=== PATIENT | female | born 1985 | race Hispanic/Latino ===

== ENCOUNTER 2017-11-20 15:15 | Inpatient (IN) | payer SELFPAY ==
[2017-11-20 16:43] LABS: #Eosinphils 0.1 thou/uL (0.0-0.7); #Lymphocytes 2.1 thou/uL (1.20-3.40); #Monocytes 0.8 thou/uL (0.11-0.59); #Neutrophils 4.9 thou/uL (1.40-6.50); %Basophils 0.6 % (0.0-1.0); %Eosinophils 1.7 % (0.0-10.0); %Lymphocytes 25.9 % (21.0-51.0); %Monocytes 10.5 % (0.0-10.0); %Neutrophils 61.3 % (42.0-75.0); Hemoglobin 19.2 g/dL (12.0-16.0); Mean Corpuscular HGB CONC 34.2 g/dL (32.0-36.0); Mean Corpuscular Hemoglobin 31.1 pg (27.0-31.0); Mean Corpuscular Volume 90.9 fl (81.0-99.0); Mean Platelet Volume 7.4 fL (7.4-10.4); Platelet Count 315 thou/uL (130-400); Red Blood Cell (RBC) Count 6.16 mill/uL (4.20-5.40)
[2017-11-20 17:04] LABS: ALT (SGPT) 8 U/L (8-55); AST (SGOT) 14 U/L (5-34); Albumin 3.9 g/dL (3.5-5.0); Alkaline Phosphatase 43 U/L (40-150); Anion Gap 12 mmol/L (10-20); BUN (Urea Nitrogen) 11 mg/dL (7.0-18.7); Bilirubin, Total 0.4 mg/dL (0.2-1.2); Calc. Creatinine Clearance 0 mL/min (70-130); Calcium 8.5 mg/dL (7.8-10.44); Carbon Dioxide 19 mmol/L (22-29); Chloride 107 mmol/L (98-107); Estimated GFR-MDRD 81; Globulin 2.8 g/dL (2.4-3.5); Glucose 156 mg/dL (70-105); Potassium 3.8 mmol/L (3.5-5.1); Protein, Total 6.7 g/dL (6.0-8.3); Sodium 134 mmol/L (136-145)
[2017-11-20 18:06] LABS: Bilirubin Negative (Negative); Blood, Urine Negative (Negative); Clarity CLOUDY (Clear); Glucose, Urine (Dipstick) Negative (Negative); Leukocyte Negative (Negative); Nitrite Negative (Negative); Protein, Urine (Dipstick) Negative (Neg-Trace); Specific Gravity, Urine 1.008 (1.002-1.036); Urobilinogen 0.2 mg/dL (0.2-1.0); pH, Urine 5.5 (5.0-9.0)
[2017-11-20] MEDS ORDERED: Promethazine HCl 25 MG/ML VIAL IM/IV PRN (18:08)
[2017-11-20] MEDS ORDERED: clonazePAM 0.5 MG TAB PO PRN (18:08)
[2017-11-20 18:10] LABS: Pregnancy Test - Urine (BHCG) Negative (Negative); Pregu Control Background? CLEAR/WHITE (CLR/WHITE); Pregu Control Bar Appear? YES (CONTROL BAR); Specific Gravity 1.008 (1.002-1.036)
[2017-11-20 18:20] LABS: Amphetamine Not Detected (NotDetected); Barbiturates Screen Not Detected (NotDetected); Benzodiazepine Screen Not Detected (NotDetected); Cocaine Metabolite Screen Not Detected (NotDetected); Medtox Control Line Valid? VALID (VALID); Medtox Reader # READER 1; Methadone Not Detected (NotDetected); Methamphetamine Not Detected (NotDetected); Opiate Screen Not Detected (NotDetected); Oxycodone Screen Not Detected (NotDetected); Phencyclidine (PCP) Not Detected (NotDetected); THC/Cannabinoid Screen Not Detected (NotDetected); Tricyclic Screen Not Detected (NotDetected)
[2017-11-20 20:24] VITALS: BMI 21.5
[2017-11-20] MEDS: Dextrose 5 % And 0.9 % NaCl 1,000 ML IV SCH (20:41)
[2017-11-20] MEDS ORDERED: clonazePAM 1 MG TAB PO SCH (21:00)
[2017-11-20 21:02] LABS: Lactic Acid 1.5 mmol/L (0.5-2.2)
[2017-11-20] MEDS: Famotidine 40 MG/4 ML VIAL SLOW IVP SCH (22:00)
--- NOTE | 2017-11-21 02:58 | HP ---
CHIEF COMPLAINT: Nausea, vomiting, and diarrhea. HISTORY OF PRESENT ILLNESS: The patient is a very pleasant 32-year-old female with no significant pa medical history who presents to the hospital with nausea, vomiting which started Thursday and ende d on Thursday. The patient also stated that she started having diarrhea starting Thursday and continues to have diarrhea currently. The patient stated that she was in good health when suddenly she started having nausea, vomiting and could not hold down any oral fluids. The patient stated that her nausea and vomiting resolved; however, her diarrhea started. The patient denies any eating outside or any travels recently. The patient states that her grandfather recently was diagnosed with C. diff and mcgraw d similar symptoms. The patient states that for the past week she has been having greater than 10 omkar wel movements daily. The patient states that they are foul smelling and are green in color. The pat ient states that she did take Imodium yesterday, but it did not help. The patient continued to have worsening diarrhea and just did not feel well, which made her come into the ER for further evaluation . The patient denies any fevers or chills, but she did complain of some lower abdominal pain describ ed it as a soreness. The patient also states that her son recently was having nausea, vomiting, and started to have diarrhea. PAST MEDICAL HISTORY: She has a history of asthma, and anxiety. SOCIAL HISTORY: She denies any alcohol or drug use or smoking history. ALLERGIES: She is allergic to CODEINE. PAST SURGICAL HISTORY: She had appendectomy. FAMILY HISTORY: She denies any history of heart disease, cancer, or diabetes. MEDICATIONS: She takes Klonopin 0.5 mg as needed and ProAir as needed. REVIEW OF SYSTEMS: The following complete review of systems was negative, unless otherwise mentioned in the HPI or below: Constitutional: Weight loss or gain, ability to conduct usual activities. Sk in: Rash, itching. Eyes: Double vision, pain. ENT/Mouth: Nose bleeding, neck stiffness, pain, te nderness. Cardiovascular: Palpitations, dyspnea on exertion, orthopnea. Respiratory: Shortness of breath, wheezing, cough, hemoptysis, fever or night sweats. Gastrointestinal: Poor appetite, abdom inal pain, heartburn, nausea, vomiting, constipation, or diarrhea. Genitourinary: Urgency, frequenc y, dysuria, nocturia. Musculoskeletal: Pain, swelling. Neurologic/Psychiatric: Anxiety, depressio n. Allergy/Immunologic: Skin rash, bleeding tendency. PHYSICAL EXAMINATION: VITAL SIGNS: She is afebrile at 97.1; pulse initially was 143, now is 103, 16 respirations, 97% on r oom air, and 117/66. GENERAL: She appears awake, alert, and oriented; however, appears severely dehydrated. CARDIOVASCULAR: S1, S2 present. She appears to be mildly tachycardic. ABDOMEN: Bowel sounds are present x2. Soft; however, mild tenderness to lower abdomen area. No spl enomegaly or hepatomegaly noted. LUNGS: Clear to auscultation, rhonchi or wheezes noted. EXTREMITIES: No edema. LABORATORY DATA: Labs are as the following: WBC is of 8.0, hemoglobin of 19.2, hematocrit of 56.0, platelets of 315. Chemistry: Her sodium is 134, potassium of 3.8, bicarbonate of 19, BUN of 11, cre atinine 0.82. AST, ALT, and bilirubin are normal. Her urine appears pretty clear, also te st is negative. Toxicology undetected. ASSESSMENT AND PLAN: The patient is a very pleasant 32-year-old female who presents to the hospital with abdominal pain, nausea and vomiting. 1. Nausea, vomiting, and diarrhea. The patient has no significant leukocytosis could possibly be a viral etiology at this point. The patient states that her diarrhea has stopped. We will start IV hy dration in patient. We will collect stool for Clostridium difficile and also for stool WBCs and stoo l culture. 2. Dehydration, most likely secondary to her nausea, vomiting, diarrhea. We will continue IV hydrat ion. We will also start her on clear liquid, advance as tolerated. 3. Significant elevated hemoglobin. This most likely secondary to dehydration. We will continue to monitor. 4. Tachycardia, most likely secondary to dehydration. We will continue to monitor. We will continu e IV hydration. Her tachycardia has improved with IV hydration.
[2017-11-21 05:27] LABS: Anion Gap 9 mmol/L (10-20); BUN (Urea Nitrogen) 6 mg/dL (7.0-18.7); Calc. Creatinine Clearance 113 mL/min (70-130); Calcium 7.3 mg/dL (7.8-10.44); Carbon Dioxide 15 mmol/L (22-29); Chloride 117 mmol/L (98-107); Estimated GFR-MDRD Greater than 90; Glucose 124 mg/dL (70-105); Potassium 3.4 mmol/L (3.5-5.1); Sodium 138 mmol/L (136-145)
[2017-11-21] MEDS: Dextrose 5 % And 0.9 % NaCl 1,000 ML IV SCH ×2 (05:30→13:46)
[2017-11-21 06:01] LABS: Band 5 % (5-11); Eosinophils 1 % (0-10); Hemoglobin 14.6 g/dL (12.0-16.0); Lymphocytes 46 % (21-51); MDiff Complete? YES; Mean Corpuscular HGB CONC 34.3 g/dL (32.0-36.0); Mean Corpuscular Hemoglobin 31.4 pg (27.0-31.0); Mean Corpuscular Volume 91.7 fl (81.0-99.0); Mean Platelet Volume 7.3 fL (7.4-10.4); Monocytes 8 % (0-10); Neutrophil 40 % (42-75); PLT Morphology Comment Appears Adequate; Platelet Count 256 thou/uL (130-400); RBC Distribution Width 11.9 % (11.5-14.5); Red Blood Cell (RBC) Count 4.63 mill/uL (4.20-5.40); White Blood Cell (WBC) Count 5.1 thou/uL (4.8-10.8)
[2017-11-21] MEDS ORDERED: Enoxaparin Sodium 40 MG/0.4 ML SYRINGE SC SCH (09:00)
[2017-11-21] MEDS: Famotidine 40 MG/4 ML VIAL SLOW IVP SCH (10:26)
[2017-11-21 18:44] VITALS: BP 110/80; TEMP 98.6
--- NOTE | 2017-11-22 01:32 | DIS ---
DATE OF ADMISSION: 11/20/2017 DATE OF DISCHARGE: 11/21/2017 DISCHARGE DIAGNOSES: 1. Viral gastroenteritis. 2. Nausea, vomiting, diarrhea. 3. Dehydration. HOSPITAL COURSE: The patient is a very pleasant 32-year-old female who initially presented to the [facility] with a week of nausea, vomiting, and diarrhea. The patient when came into the ER was very deh ydrated and was tachycardic. The patient initially was resuscitated with IV hydration. She continue d to improve throughout the hospital stay. She had no leukocytosis. She could not generate a stool sample to check any stool studies. Most likely a viral etiology. The patient's nausea, vomiting, an d diarrhea improved dramatically with gentle hydration. Patient was able to tolerate clear liquid an d advance diet to soft and a regular diet. She will be discharged home. Follow up with primary care doctor. Patient was advised that if she starts getting a temperature at home or starts having nause a, vomiting, diarrhea to come back into the hospital for further evaluation. The patient was advised against not taking Imodium. PHYSICAL EXAMINATION: VITAL SIGNS: Temperature of 98.2, pulse of 88, respirations 16, and blood pressure 110/80. GENERAL: She is awake, alert, and oriented x3, does not appear in distress. CVS: S1, S2 present. No murmurs, rubs or gallops. ABDOMEN: Soft, nontender. Bowel sounds are present x2. There is no hepatomegaly or splenomegaly no angelika. LUNGS: Clear to auscultation. No rhonchi or wheezes noted. EXTREMITIES: No edema. Pedal pulse are present x2. DISCHARGE MEDICATIONS: She is going to continue her home medications which include ranitidine 150 mg p.o. b.i.d., Zofran 4 mg p.o. q.4 hours p.r.n. for nausea and vomiting, ProAir HFA 2 puffs p.r.n. da rodney, and Klonopin 1 p.o. b.i.d. p.r.n.
== END 2017-11-21 19:11 | disposition home or self-care (01) | DRG 641 ==
LOC: ERS 15:15 → T4-B 17:00
PROVIDERS: ADMIT Internal Medicine; ATTEND Internal Medicine
DX: E86.0 Dehydration (principal); A08.4 Viral intestinal infection, unspecified; J45.909 Unspecified asthma, uncomplicated; F41.9 Anxiety disorder, unspecified; Z88.5 Allergy status to narcotic agent; Z79.899 Other long term (current) drug therapy; F32.9 Major depressive disorder, single episode, unspecified
CPT/HCPCS: 36415; 80048; 80053; 80306; 81003; 81025; 82550; 83605; 85025; 87040; 87086; 87149; 93005; 96360; J1650

== ENCOUNTER 2019-06-24 20:48 | Emergency (ER) | payer SELFPAY ==
[2019-06-24 22:14] LABS: #Eosinphils 0.3 thou/uL (0.0-0.7); #Lymphocytes 2.8 thou/uL (1.20-3.40); #Monocytes 0.6 thou/uL (0.11-0.59); #Neutrophils 5.6 thou/uL (1.40-6.50); %Basophils 0.4 % (0.0-1.0); %Eosinophils 3.1 % (0.0-10.0); %Lymphocytes 30.3 % (21.0-51.0); %Neutrophils 60.1 % (42.0-75.0); Hemoglobin 12.5 g/dL (12.0-16.0); Mean Corpuscular Hemoglobin 32.3 pg (27.0-31.0); Mean Corpuscular Volume 94.8 fL (78.0-98.0); Mean Platelet Volume 7.1 fL (7.4-10.4); Platelet Count 276 thou/uL (130-400); RBC Distribution Width 12.8 % (11.5-14.5); Red Blood Cell (RBC) Count 3.87 mill/uL (4.20-5.40); White Blood Cell (WBC) Count 9.3 thou/uL (4.8-10.8)
[2019-06-24 22:35] LABS: ALT (SGPT) 21 U/L (8-55); AST (SGOT) 35 U/L (5-34); Albumin 4.2 g/dL (3.5-5.0); Alkaline Phosphatase 79 U/L (40-110); Anion Gap 11 mmol/L (10-20); BUN (Urea Nitrogen) 26 mg/dL (7.0-18.7); Bilirubin, Total 0.2 mg/dL (0.2-1.2); Calc. Creatinine Clearance 0 mL/min (70-130); Calcium 9.1 mg/dL (7.8-10.44); Carbon Dioxide 25 mmol/L (22-29); Chloride 106 mmol/L (98-107); Estimated GFR-MDRD 90; Globulin 2.8 g/dL (2.4-3.5); Glucose 92 mg/dL (70-105); Lipase 14 U/L (8-78); Potassium 3.8 mmol/L (3.5-5.1); Sodium 138 mmol/L (136-145)
--- NOTE | 2019-06-24 23:01 | RAD ---
Chest 2 views HISTORY: Chest pain. FINDINGS: No comparison. Cardiac silhouette and pulmonary vasculature are unremarkable. Mediastinum i s midline. No confluent airspace consolidation, pneumothorax, or pleural fluid are apparent. IMPRESSION: No active cardiopulmonary abnormalities are demonstrated.
[2019-06-24] MEDS ORDERED: Ketorolac Tromethamine 60 MG/2 ML VIAL ONE (23:44)
[2019-06-24] MEDS ORDERED: Diazepam 10 MG/2 ML SYRINGE ONE (23:44)
[2019-06-24] MEDS ORDERED: Diazepam 5 MG TAB ONE (23:45)
== END 2019-06-25 00:06 | disposition home or self-care (01) ==
LOC: ERS 20:48
DX: M62.838 Other muscle spasm (principal); J45.909 Unspecified asthma, uncomplicated; F41.9 Anxiety disorder, unspecified; Z79.51 Long term (current) use of inhaled steroids; Z79.899 Other long term (current) drug therapy
CPT/HCPCS: 36415; 71046; 80053; 83690; 85025; 96372; J1885; J3360